=== PATIENT | male | born 1965 | race Caucasian/White ===

== ENCOUNTER → 2022-05-03 13:07 | Outpatient (BNVA) | payer MEDICARE, MEDICAID, SELFPAY | PROVIDERS: PCP Internal Medicine; Visit Provider Internal Medicine | DX: M86.8X7 Other osteomyelitis, ankle and foot (principal); E11.69 Type 2 diabetes mellitus with other specified complication; B95.62 Methicillin resistant Staphylococcus aureus infection as the cause of diseases classified elsewhere; B96.6 Bacteroides fragilis [B. fragilis] as the cause of diseases classified elsewhere; Z16.29 Resistance to other single specified antibiotic | CPT/HCPCS: 99202 ==

== ENCOUNTER → 2022-05-16 10:26 | Day surgery (SDC) | payer MEDICARE, MEDICAID, SELFPAY ==
--- NOTE | ~2022-05-16 | XR_ITS ---
EXAMINATION: XR CHEST CLINICAL INFORMATION: Status post PICC line placement. Check. COMPARISON: Chest x-ray 03/09/2022 TECHNIQUE: Frontal view of the chest was obtained. FINDINGS: The lungs are somewhat expanded and clear. Heart size is normal. There is a right PICC line with its tip in the distal is seen. There is moderate spondylosis right dorsal spine. No aggressive lytic or sclerotic process seen. XR/XR chest 1V IMPRESSION: 1. No acute cardiopulmonary process seen. 2. Right PICC line tip is in distal SVC. 3. Moderate spondylosis right dorsal spine.
--- NOTE | 2022-05-16 13:29 | HO.PICC ---
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 Following completion of Leburn Protocol the skin and soft tissues were anesthetized with 1% Lidocaine plain. Using ultrasound guidance, right basilic vein access was obtained twice by Aneesh Cruz RN, but unable to advance guidewire. Right basilic vein access was then obtained on first attempt by Danie Corral RN. Over an 0.018 wire through peel-away sheath, a 4FR single lumen PASV PICC line was positioned. Catheter length is 42 CM internal length, at the 1 CM katy--external length, for a total trimmed length of 43 CM. The procedure was performed in S272. Tip verification was performed by Thais Salinas with Sherlock 3CG. Tip located in SVC. Ultrasound was used to document vein patency and for needle entry. A formal ultrasound picture and cardiac rhythm strip was recorded. [facility] [employer] has released the line for use and it is currently dressed with a StatLock, Tegaderm, and CHG disc. Verification has been performed for blood return and line patency. Arm Circumference: 34.5 CM Equipment: SafetyCulture PowerPICC Solo Catheter Type: 4FR single lumen PASV PICC Lot #: [id number]
== END ==
PROVIDERS: PCP Internal Medicine
DX: M86.9 Osteomyelitis, unspecified (principal)
CPT/HCPCS: 36573; 71045; C1751

== ENCOUNTER 2022-05-16 15:31 | Outpatient (REF) | payer MEDICARE, MEDICAID, SELFPAY | END 2022-05-16 15:32 | disposition home or self-care (01) | LOC: HO.MDS 15:31 | PROVIDERS: Visit Provider Internal Medicine | DX: M86.9 Osteomyelitis, unspecified (principal) | CPT/HCPCS: 96365; J3370 ==

== ENCOUNTER 2022-05-22 13:37 | Outpatient (REF) | payer MEDICARE, MEDICAID, SELFPAY ==
--- NOTE | ~2022-05-22 | MR_ITS ---
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 Osteomyelitis. COMPARISON: 09/15/2021 TECHNIQUE: MRI of the ankle was performed before and after the intravenous administration of 10 mL Gadavist on a high-field scanner. FINDINGS: There is a deep wound at the plantar aspect of the calcaneal tuberosity measuring 3 x 4 cm in area (length by with) and 1.3 cm in depth. A thin layer of enhancing granulation tissue is evident between the deep margin of the ulceration and the plantar aspect of the calcaneus. There is associated bone loss at the plantar margin of the calcaneal tuberosity with associated marrow edema signal, marrow enhancement, and low signal intensity on T1-weighted images, consistent with osteomyelitis. This has progressed as compared to the prior study from 09/15/2021. There is disruption of the plantar fascia at the calcaneal tuberosity origin as a result of the aforementioned erosion. Edema signal and enhancement extend throughout the calcaneus. Talocrural and subtalar joints appear relatively well preserved. The distal tibia, distal fibula, talus, and navicular are normal in signal intensity. Mild calcaneocuboid and talonavicular osteoarthritis. Marrow edema signal is evident within the cuneiforms and cuboid as well as the bases of the 2nd through 5th metatarsals, new as compared to prior. There is associated loss of normal signal intensity within the metatarsal bases on T1-weighted images. These findings have significantly progressed as compared to prior and are most concerning for neuropathic arthropathy. Superimposed septic arthritis and osteomyelitis are also possible, though no significant effusion or fluid collections are identified on these images. The surrounding soft tissues in the midfoot are edematous with hyperenhancement. The abnormalities extend off of the distal margin of the study. Achilles tendon is intact. The extensor, medial flexor, and peroneal tendons also appear intact without appreciable tears or tenosynovitis. Ankle ligaments are normal. MR/MR ankle LT wo/w con IMPRESSION: 1. Progression of the calcaneal osteomyelitis with an associated plantar soft tissue wound. Of note, there is new disruption of the calcaneal origin of the plantar fascia which is likely related to the degree of osseous erosion at the plantar margin of the calcaneal tuberosity. 2. Marked progression of the arthropathy in the midfoot at the tarsometatarsal joints with surrounding marrow edema and enhancement, most concerning for progressive neuropathic arthropathy. Septic arthritis and osteomyelitis are also possible, particularly given the marked surrounding soft tissue enhancement.
== END 2022-05-22 13:38 | disposition home or self-care (01) ==
LOC: HO.MRI 13:37
PROVIDERS: PCP Internal Medicine; Visit Provider Physician Assistant
DX: E11.621 Type 2 diabetes mellitus with foot ulcer (principal); L97.525 Non-pressure chronic ulcer of other part of left foot with muscle involvement without evidence of necrosis; M86.472 Chronic osteomyelitis with draining sinus, left ankle and foot
CPT/HCPCS: 73723; A9585

== ENCOUNTER → 2022-05-24 13:59 | Outpatient (BNVA) | payer MEDICARE, MEDICAID, SELFPAY | PROVIDERS: PCP Internal Medicine; Visit Provider Internal Medicine | DX: M86.9 Osteomyelitis, unspecified (principal) | CPT/HCPCS: 99212 ==

== ENCOUNTER → 2022-06-07 11:02 | Outpatient (BNVA) | payer MEDICARE, MEDICAID, SELFPAY | PROVIDERS: PCP Internal Medicine; Visit Provider Internal Medicine | DX: M86.9 Osteomyelitis, unspecified (principal) | CPT/HCPCS: 99212 ==

== ENCOUNTER 2022-06-15 12:29 | Emergency (ER) | payer MEDICARE, MEDICAID, SELFPAY ==
[2022-06-15 12:42] VITALS: BP 172/84; PULSE 78; O2SAT 99
[2022-06-15 12:44] VITALS: BP 188/107; PULSE 97; RESP 18; TEMP 36.6; O2SAT 98; BMI 33.0
--- NOTE | 2022-06-15 12:47 | ECG_ITS ---
Test Reason : CHEST PAIN Blood Pressure : / mmHG Vent. Rate : 063 BPM Atrial Rate : 000 BPM P-R Int : 000 ms QRS Dur : 084 ms QT Int : 460 ms P-R-T Axes : 000 043 020 degrees QTc Int : 470 ms Atrial fibrillation Possible Anterior infarct , age undetermined Abnormal ECG When compared with ECG of 09-MAR-2022 09:18, Poor R wave progression present Referred By: Axel Zhao Electronically Signed By:Dmitry Hough
--- NOTE | 2022-06-15 12:56 | ED.GENADULT ---
HPI - General Adult General Chief complaint: Nausea/Vomiting/Diarrhea Stated complaint: COMING FROM WOUND CARE,NO OTHER INFO Time Seen by Provider: 06/15/22 12:45 Source: patient Mode of arrival: ambulatory Limitations: no limitations History of Present Illness HPI narrative: 56-year-old male with history of diabetic foot infection currently on hyperbaric oxygen vancomycin presents for evaluation after developing nausea vomiting while in the hyperbaric chamber. Patient was noted to have a history of left posterior calcaneal breakdown and ulcer. He subsequently underwent hyperbaric oxygen for refractory osteomyelitis. In the past, he had been treated with Captisol for Bacteroides fragilis. However, cultures recently have shown MRSA resistant to doxycycline but sensitive to Bactrim and vancomycin. He had a trial period of Bactrim. He is currently on vancomycin. While in the hyperbaric chamber, he developed nausea and lightheadedness. He denied chest pain, shortness breath, palpitations. When taking out of the hyperbaric chamber, he had increasing nausea with emesis that was nonbilious nonbloody. Denies any chest pain, shortness breath, palpitations, abdominal pain, diarrhea, constipation. He remains slightly nauseous but otherwise asymptomatic and a features. He denies any sick contacts. Patient describes symptoms as moderate to severe. Related Data Home Medications Medication Instructions Recorded Confirmed glipizide 10 mg tablet 10 mg PO DAILY 05/03/22 insulin glargine 100 unit/mL 20 unit subcut BID 05/03/22 subcutaneous solution (Lantus U-100 Insulin) lisinopril 10 mg tablet 10 mg PO DAILY 05/03/22 oxycodone 5 mg capsule 5 mg PO BID PRN 05/03/22 warfarin 5 mg tablet 5 mg PO DAILY 05/03/22 Previous Rx's Medication Instructions Recorded vancomycin 1,000 mg intravenous 1,000 mg IV Q12H 42 days #42 ea 05/03/22 injection ondansetron 4 mg disintegrating 4 mg PO Q8H PRN nausea and 06/15/22 tablet vomiting #10 tabs Allergies Allergy/AdvReac Type Severity Reaction Status Date / Time No Known Allergies Allergy Verified 06/07/22 11:15 PMFSH Past Medical History Medical History Osteomyelitis Social History Social History Advance Directives: No Advance Directives Information Provided: Yes Physical Exam ED Vital Signs: Vital Signs - 24 hr 06/15/22 12:44 06/15/22 14:05 Temperature 97.8 F 97.9 F Pulse Rate 97 64 Respiratory Rate 18 16 Blood Pressure 188/107 H 159/94 H Pulse Oximetry 98 99 Oxygen Delivery Method Room Air Room Air BMI result Body Mass Index 33.0 GEN: Well developed, no acute distress, alert, oriented HEENT: Normocephalic, atraumatic, normal external ears, nose appears normal, no oropharyngeal edema or exudates Eyes: Normal to appearance Neck: Supple, no lymphadenopathy Respiratory: Talks in complete sentences, no respiratory distress, clear to auscultation bilaterally Cardiovascular: Regular rate and rhythm, no murmurs rubs or gallops Abdomen: Soft, nontender, nondistended, no guarding, no rebound Back: No CVA tenderness Extremities: Left foot bandage Neurologic: No focal neurologic deficits, cranial nerves 2-12 intact, strength is 5/5 bilaterally Skin: No rash Course Course Course Narrative: Her 56-year-old male with diabetes, chronic osteomyelitis on hyperbaric oxygen with PICC line and on vancomycin presents with nausea vomiting. Examination is otherwise benign. He is hypertensive but will continue to monitor that. I doubt this is contributing to his current symptoms but is more likely a result of his symptoms has no abdominal pain, tenderness, rebound or guarding at this point, symptomatic management, checking lab tests to see if there are any additional abnormalities appropriate. Should he develop any additional symptoms during our evaluation, management will be directed differently. Reevaluation(s) Reevaluation #1: Feeling much better. No longer lightheaded. Denies any nausea this time. Would like to go home. Repeating a 2nd troponin and if this is negative pain, patient can go home. His visiting nurse requested that we order a vancomycin trough which was ordered on his behalf. Time: 14:25 Reevaluation #2: patient doing well. Trop x 2 negative will d/c. Ambulating without difficulty. Time: 15:29 Medications Administered Discontinued Medications Generic Name Dose Route Start Last Admin Trade Name Freq PRN Reason Stop Dose Admin Sodium Chloride 1,000 mls @ 999 mls/hr 06/15/22 13:00 06/15/22 13:23 Ns IV 06/15/22 14:00 999 mls/hr .Q1H1M ANDERS Administration Ondansetron HCl 4 mg 06/15/22 12:47 06/15/22 13:23 Ondansetron Hcl 4 Mg/2 Ml Vial IVPUSH 06/15/22 12:48 4 mg ONCE ONE Administration Medical Decision Making Medical Decision Making [facility] Narrative: 56-year-old male with diabetes, chronic foot infection hyperbaric oxygen and intravenous antibiotics presents for evaluation after nausea vomiting lightheadedness during to hyperbaric oxygen. His exam is consistent with hypertension. Otherwise he has a wound that is covered on his left foot. The rest exam is unremarkable. Differential diagnosis is broad including but not limited to gastroenteritis, anxiety, anginal equivalent, GERD, reflux, esophageal spasm, IBS, infectious etiology. Will check labs. Will provide patient with antiemetics and IV fluids and re-evaluate. Differential Diagnosis Differential Diagnoses: The differential diagnosis associated with the presentation includes (See above) nausea, vomiting, lightheadedness Lab Data [facility] Lab Attestation statement: I reviewed the patient's lab results. 06/15/22 12:51 06/15/22 12:50 Labs: Lab Results 06/15/22 06/15/22 06/15/22 Range/Units 12:50 12:50 12:51 WBC 9.9 (4.8-10.8) X10*3/uL RBC 4.79 (4.60-5.80) X10*6/uL Hgb 10.6 L (14.0-18.0) g/dl Hct 35.6 L (42.0-52.0) % MCV 74.3 L (80.0-98.0) fL MCH 22.1 L (27.0-33.0) pg MCHC 29.8 L (31.0-36.0) g/dl RDW 18.5 H (11.0-16.0) % Plt Count 185 D (160-400) X10*3/uL MPV 10.1 (9.4-12.4) fL Immature Gran % (Auto) 0.3 (0.0-0.4) % Neut % (Auto) 81.2 H (45-73) % Lymph % (Auto) 12.0 L (20-40) % Mcculloch % (Auto) 5.5 (2-11) % Eos % (Auto) 0.7 (0-4) % Baso % (Auto) 0.3 (0-2) % Lymph # (Auto) 1.2 (1.2-4.9) X10*3/uL Mcculloch # (Auto) 0.5 (0.1-1.2) X10*3/uL Eos # (Auto) 0.1 (0.0-0.4) X10*3/uL Baso # (Auto) 0.0 (0.0-0.2) X10*3/uL Abs Immat Gran (auto) 0.03 (0.00-0.03) X10*3/uL Absolute Neuts (auto) 8.0 (2.0-8.3) x10*3/uL Absolute Nucleated RBC 0.000 (0.0-0.012) X10*3/uL Nucleated RBC % (auto) 0.0 (0.0-0.2) /100WBC Sodium 140 (135-145) mmol/L Potassium 4.0 (3.3-5.1) mmol/L Chloride 107 (96-108) mmol/L Carbon Dioxide 26 (22-29) mmol/L Anion Gap 11 L (12-20) BUN 18 H (9-16) mg/dL Creatinine 0.80 (0.5-1.4) mg/dL Estim Creat Clear Calc 123.2 Estimated GFR > 60 Random Glucose 204 H (60-115) mg/dL Calcium 8.8 (8.4-10.2) mg/dL Troponin I High Sens < 2.7 (<3.5-35.0) ng/L Vancomycin Trough (10.0-20.0) mcg/mL 06/15/22 06/15/22 Range/Units 14:13 14:13 WBC (4.8-10.8) X10*3/uL RBC (4.60-5.80) X10*6/uL Hgb (14.0-18.0) g/dl Hct (42.0-52.0) % MCV (80.0-98.0) fL MCH (27.0-33.0) pg MCHC (31.0-36.0) g/dl RDW (11.0-16.0) % Plt Count (160-400) X10*3/uL MPV (9.4-12.4) fL Immature Gran % (Auto) (0.0-0.4) % Neut % (Auto) (45-73) % Lymph % (Auto) (20-40) % Mcculloch % (Auto) (2-11) % Eos % (Auto) (0-4) % Baso % (Auto) (0-2) % Lymph # (Auto) (1.2-4.9) X10*3/uL Mcculloch # (Auto) (0.1-1.2) X10*3/uL Eos # (Auto) (0.0-0.4) X10*3/uL Baso # (Auto) (0.0-0.2) X10*3/uL Abs Immat Gran (auto) (0.00-0.03) X10*3/uL Absolute Neuts (auto) (2.0-8.3) x10*3/uL Absolute Nucleated RBC (0.0-0.012) X10*3/uL Nucleated RBC % (auto) (0.0-0.2) /100WBC Sodium (135-145) mmol/L Potassium (3.3-5.1) mmol/L Chloride (96-108) mmol/L Carbon Dioxide (22-29) mmol/L Anion Gap (12-20) BUN (9-16) mg/dL Creatinine (0.5-1.4) mg/dL Estim Creat Clear Calc Estimated GFR Random Glucose (60-115) mg/dL Calcium (8.4-10.2) mg/dL Troponin I High Sens 3.0 (<3.5-35.0) ng/L Vancomycin Trough 9.1 L (10.0-20.0) mcg/mL Independent Interpretation I performed an independent interpretation of an: EKG (Atrial fibrillation heart rate 63, no acute ST elevations or depressions, similar to previous EKG) External Record Review External record reviewed: Outpatient record (Infectious disease) Tests considered The following testing was considered but not selected: X-ray Prescription Management Antiemetics Chronic Conditions Patient?s care impacted by: Diabetes and Hypertension Discharge Plan Discharge Clinical Impression: Nausea and vomiting, Osteomyelitis Patient Disposition: Home, Self-Care Instructions: Acute Nausea and Vomiting (ED) Prescriptions: New ondansetron 4 mg tablet,disintegrating 4 mg PO Q8H PRN (Reason: nausea and vomiting) Qty: 10 0RF No Action warfarin 5 mg tablet 5 mg PO DAILY lisinopril 10 mg tablet 10 mg PO DAILY glipizide 10 mg tablet 10 mg PO DAILY insulin glargine [Lantus U-100 Insulin] 100 unit/mL solution 20 unit subcut BID oxycodone 5 mg capsule 5 mg PO BID PRN vancomycin 1,000 mg recon soln 1,000 mg IV Q12H 42 Days Qty: 42 0RF Referrals: Keily Quick MD [Primary Care Provider] - 3 days
[2022-06-15 13:07] LABS: MANUAL DIFF FLAG NO
[2022-06-15 13:09] LABS: Basophils Percent Auto 0.3 % (0-2); Eosinophils Absolute Auto 0.1 X10*3/uL (0.0-0.4); Eosinophils Percent Auto 0.7 % (0-4); Hematocrit 35.6 % (42.0-52.0); Hemoglobin 10.6 g/dl (14.0-18.0); Imm Gran Abs Auto 0.03 X10*3/uL (0.00-0.03); Imm Gran Pct Auto 0.3 % (0.0-0.4); Lymphocytes Absolute Auto 1.2 X10*3/uL (1.2-4.9); Mean Corpuscular HGB Conc 29.8 g/dl (31.0-36.0); Mean Corpuscular Hemoglobin 22.1 pg (27.0-33.0); Mean Corpuscular Volume 74.3 fL (80.0-98.0); Mean Platelet Volume 10.1 fL (9.4-12.4); Monocytes Absolute Auto 0.5 X10*3/uL (0.1-1.2); Monocytes Percent Auto 5.5 % (2-11); Neutrophils Percent Auto 81.2 % (45-73); Platelet Count 185 X10*3/uL (160-400); Red Blood Count 4.79 X10*6/uL (4.60-5.80); Red Cell Distribution Width 18.5 % (11.0-16.0); White Blood Count 9.9 X10*3/uL (4.8-10.8)
[2022-06-15] MEDS: ondansetron HCL 4 MG/2 ML VIAL IVPUSH (13:23)
[2022-06-15] MEDS: 0.9 % Sodium Chloride 1,000 ML 999 ML IV (13:23)
[2022-06-15 13:29] LABS: Anion Gap 11 (12-20); Blood Urea Nitrogen 18 mg/dL (9-16); Calcium 8.8 mg/dL (8.4-10.2); Carbon Dioxide 26 mmol/L (22-29); Chloride 107 mmol/L (96-108); Creatinine Clr Calc Pharmacy 123.2; Estimated Glomerular Filt Rate > 60; Glucose Random 204 mg/dL (60-115); Sodium 140 mmol/L (135-145)
[2022-06-15 13:40] LABS: Troponin-I High Sensitivity < 2.7 ng/L (<3.5-35.0)
[2022-06-15 14:05] VITALS: BP 159/94; PULSE 64; RESP 16; TEMP 36.6; O2SAT 99
[2022-06-15 14:42] LABS: Vancomycin Trough 9.1 mcg/mL (10.0-20.0)
--- NOTE | 2022-06-15 15:05 | PC.NURSE ---
report received from MARY romeo Pt is resting comfortably on stretcher at this time, denies pain or nausea at this time. Fluids dripping slowly, pt encouraged to keep arm straight as to allow fluids to flow well through picc line. Respirations even and unlabored. No new orders at this time
== END 2022-06-15 16:23 | disposition home or self-care (01) ==
PROVIDERS: Emergency Provider Emergency Medicine; PCP Internal Medicine
DX: R11.2 Nausea with vomiting, unspecified (principal); E11.69 Type 2 diabetes mellitus with other specified complication; M86.9 Osteomyelitis, unspecified; Z79.4 Long term (current) use of insulin; Z79.01 Long term (current) use of anticoagulants; Z79.899 Other long term (current) drug therapy
CPT/HCPCS: 36415; 80048; 80202; 84484; 85025; 93005; 96361; 96374; 99284; J2405

== ENCOUNTER → 2022-06-21 11:11 | Outpatient (BNVA) | payer MEDICARE, MEDICAID, SELFPAY | PROVIDERS: PCP Internal Medicine; Visit Provider Internal Medicine | DX: M86.9 Osteomyelitis, unspecified (principal) | CPT/HCPCS: 99212 ==

== ENCOUNTER → 2022-07-21 11:16 | Outpatient (BNVA) | payer MEDICARE, MEDICAID, SELFPAY | PROVIDERS: PCP Internal Medicine; Visit Provider Internal Medicine | DX: M86.9 Osteomyelitis, unspecified (principal) | CPT/HCPCS: 99212 ==

== ENCOUNTER 2022-12-27 14:23 | Outpatient (REF) | payer MEDICARE, MEDICAID, SELFPAY ==
--- NOTE | ~2022-12-27 | MR_ITS ---
EXAMINATION: MR ANKLE WITHOUT AND WITH CONTRAST, LEFT CLINICAL INFORMATION: Nonhealing wound of the left calcaneus. Rule out osteomyelitis. COMPARISON: MRI dated 05/22/2022. TECHNIQUE: MRI of the ankle was performed before and after the intravenous administration of 10 mL gadolinium on a high-field scanner. FINDINGS: At the plantar aspect of the calcaneal tuberosity, the deep skin wound measures approximately 4 x 2.5 cm in area with extension to the depth of bone, similar to prior. There is surrounding soft tissue edema, enhancement, and skin thickening. No fluid collections are identified. Enhancing granulation tissue is again seen at the margins of the wound. Bone loss is again noted at the plantar margin of the calcaneus with marked underlying marrow edema signal, marrow enhancement, and loss of normal fat signal intensity on T1-weighted images, consistent with persistent osteomyelitis, similar to prior. Disruption of the plantar fascia is again noted at the calcaneal attachment as a resultant of the wound and calcaneal erosion. Minimal arthrosis in the talocrural joint. Subtalar joint appears relatively well preserved. Marrow edema signal and hyperenhancement are again seen throughout the bones of the midfoot around the tarsometatarsal joints with marrow edema signal, enhancement, articular erosion, and subarticular cystic change. These findings have progressed as compared to the prior study. Abnormal alignment at the tarsometatarsal joints is suspected with slight dorsal subluxation of the 4th metatarsal base. Synovitis and small effusions are also suspected at the tarsometatarsal joints, raising the concern for septic arthritis at the tarsometatarsal joints with osteomyelitis. Specificity is somewhat limited as Charcot arthropathy can also produce a similar appearance. Achilles tendon is normal. Extensor, medial flexor, and peroneal tendons are unremarkable. No tenosynovitis. Ankle ligaments are unremarkable. There is atrophy and fatty replacement of the intrinsic foot musculature. MR/MR ankle LT wo/w con IMPRESSION: 1. Persistent osteomyelitis at the plantar margin of the calcaneus with a deep skin wound at the plantar aspect of the calcaneus. No abscess. 2. Progression of the arthropathy in the midfoot at the tarsometatarsal joints, partially imaged on this study. This is more concerning for septic arthritis and osteomyelitis. Specificity is somewhat limited as Charcot arthropathy can also produce this appearance.
[2022-12-27] MEDS: gadobutroL 10 ML VIAL IVPUSH (15:13)
== END 2022-12-27 14:24 | disposition home or self-care (01) ==
LOC: HO.MRI 14:23
PROVIDERS: PCP Internal Medicine; Visit Provider Physician Assistant
DX: L97.525 Non-pressure chronic ulcer of other part of left foot with muscle involvement without evidence of necrosis (principal)
CPT/HCPCS: 73723; A9585

== ENCOUNTER 2023-02-07 13:55 | Outpatient (RCR) | payer MEDICARE, MEDICAID, SELFPAY | END 2023-06-18 15:00 | disposition home or self-care (01) | LOC: HO.WCC 13:55 | PROVIDERS: PCP Internal Medicine; Visit Provider Physician Assistant | DX: E10.621 Type 1 diabetes mellitus with foot ulcer (principal); L97.422 Non-pressure chronic ulcer of left heel and midfoot with fat layer exposed; L97.426 Non-pressure chronic ulcer of left heel and midfoot with bone involvement without evidence of necrosis; E10.69 Type 1 diabetes mellitus with other specified complication; M86.472 Chronic osteomyelitis with draining sinus, left ankle and foot; L84 Corns and callosities; I10 Essential (primary) hypertension; Z89.429 Acquired absence of other toe(s), unspecified side | CPT/HCPCS: 11042; 11043; 11044; 15275; 29445; 99212; Q4187 ==